=== PATIENT | female | born 2000 | race Caucasian/White ===

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

== ENCOUNTER 2020-02-26 22:27 | Emergency (ER) | payer MEDICAID ==
[~2020-02-26] VITALS: Ht 162.6 cm; Wt 59.0 kg
[2020-02-26 22:35] VITALS: BP 110/76
[2020-02-27 00:26] LABS: BASOPHILS % 0.8 % (0.0-2.0); EOSINOPHILS % 1.9 % (0.0-5.0); HEMATOCRIT. 37.7 % (36.0-48.0); HEMOGLOBIN. 12.9 g/dL (12.0-16.0); LYMPHOCYTES % 23.2 % (20.0-50.0); MEAN CORPUSCULAR HEMOGLOBIN 31.1 pg (28.0-32.0); MEAN CORPUSCULAR VOLUME 90.9 fL (81.0-99.0); MEAN PLATELET VOLUME 8.4 fl (7.4-10.4); MONOCYTES % 6.8 % (2.0-8.0); NEUTROPHILS % 67.3 % (40.0-76.0); PLATELET 309 x1000/uL (130-400); RED BLOOD CELL COUNT 4.15 mill/uL (4.2-5.4); RED CELL DISTRIBUTION WIDTH 13.1 % (11.6-14.6)
[2020-02-27 00:30] LABS: CHLORIDE 106 mEq/L (98-107)
== END 2020-02-27 02:24 | disposition home or self-care (01) ==
LOC: ER 22:27
DX: F41.9 Anxiety disorder, unspecified (principal); R06.02 Shortness of breath
CPT/HCPCS: 36415; 71045; 80053; 85025; 93005; 99285

== ENCOUNTER 2020-05-30 23:35 | Emergency (ER) | payer MEDICAID, MEDICARE, OTHER ==
[~2020-05-30] VITALS: Ht 165.1 cm; Wt 61.0 kg
[2020-05-31] MEDS ORDERED: PREDNISONE 20MG TABLET PO ONE (00:45)
[2020-05-31] MEDS ORDERED: DIPHENHYDRAMINE 50MG/ML VIAL IM ONE (00:45)
[2020-05-31 01:29] LABS: BASOPHILS % 0.1 % (0.0-2.0); CHLORIDE 106 mEq/L (98-107); EOSINOPHILS % 0.6 % (0.0-5.0); HEMOGLOBIN. 13.5 g/dL (12.0-16.0); LYMPHOCYTES % 18.1 % (20.0-50.0); MEAN CORPUSCULAR HEMOGLOBIN 31.1 pg (28.0-32.0); MEAN CORPUSCULAR VOLUME 89.9 fL (81.0-99.0); MEAN PLATELET VOLUME 8.2 fl (7.4-10.4); MONOCYTES % 4.2 % (2.0-8.0); PLATELET 297 x1000/uL (130-400); RED BLOOD CELL COUNT 4.34 mill/uL (4.2-5.4)
[2020-05-31 01:37] LABS: CLARITY URINE CLEAR (CLEAR); COLOR URINE YELLOW (YELLOW); KETONES URINE NEGATIVE (NEGATIVE); LEUKOCYTE ESTERASE URINE 2+ (NEGATIVE); NITRITE URINE NEGATIVE (NEGATIVE); OCCULT BLOOD URINE 1+ (NEGATIVE); PROTEIN URINE NEGATIVE (NEGATIVE); SPECIFIC GRAVITY URINE 1.011 (1.005-1.030); UROBILINOGEN URINE 0.2 E.U./dL (0.2-1.0)
[2020-05-31 01:40] LABS: HCG SCREEN NEGATIVE
[2020-05-31 01:51] LABS: PROTHROMBIN TIME 10.4 sec (9.6-11.0)
[2020-05-31 03:00] VITALS: BP 99/69
[2020-05-31] MEDS ORDERED: KETOROLAC 30MG/ML VIAL IV ONE (03:15)
[2020-05-31] MEDS ORDERED: FAMOTIDINE 20MG TABLET PO ONE (04:15)
[2020-05-31] MEDS ORDERED: DIPHENHYDRAMINE 50MG/ML VIAL IV ONE (04:15)
== END 2020-05-31 05:25 | disposition home or self-care (01) ==
LOC: ER 23:52
DX: L50.0 Allergic urticaria (principal)
CPT/HCPCS: 36415; 74021; 80053; 81003; 81025; 83690; 84703; 85025; 85610; 93005; 96372; 96374; 96375; 99285; J1200; J1885; J7512

== ENCOUNTER 2020-06-03 02:22 | Emergency (ER) | payer MEDICAID, MEDICARE ==
[~2020-06-03] VITALS: Ht 165.1 cm; Wt 62.4 kg
[2020-06-03] MEDS ORDERED: CETIRIZINE 10MG TABLET PO STA (05:53)
[2020-06-03] MEDS ORDERED: TRIAMCINOLONE ACETONIDE 0.025% OINT 15GM TOP STA (05:54)
[2020-06-03 06:40] VITALS: BP 117/68
== END 2020-06-03 06:58 | disposition home or self-care (01) ==
LOC: ER 02:22
DX: L50.9 Urticaria, unspecified (principal); T78.49XA Other allergy, initial encounter; X58.XXXA Exposure to other specified factors, initial encounter
CPT/HCPCS: 99283

== ENCOUNTER 2021-11-02 16:07 | Emergency (ER) | payer MEDICARE ==
[~2021-11-02] VITALS: Ht 165.1 cm; Wt 62.0 kg
[2021-11-02 17:12] LABS: BASOPHILS % 0.5 % (0.0-2.0); EOSINOPHILS % 0.2 % (0.0-5.0); HEMATOCRIT. 37.2 % (36.0-48.0); HEMOGLOBIN. 12.6 g/dL (12.0-16.0); LYMPHOCYTES % 12.2 % (20.0-50.0); MEAN CORPUSCULAR HEMOGLOBIN 30.9 pg (28.0-32.0); MEAN CORPUSCULAR VOLUME 91.1 fL (81.0-99.0); MEAN PLATELET VOLUME 8.1 fl (7.4-10.4); MONOCYTES % 12.6 % (2.0-8.0); NEUTROPHILS % 74.5 % (40.0-76.0); PLATELET 244 x1000/uL (130-400); RED BLOOD CELL COUNT 4.08 mill/uL (4.2-5.4); RED CELL DISTRIBUTION WIDTH 13.5 % (11.6-14.6)
[2021-11-02 17:19] LABS: CHLORIDE 106 mEq/L (98-107)
[2021-11-02] MEDS ORDERED: ACETAMINOPHEN 325MG TABLET PO ONE (19:15)
[2021-11-02] MEDS ORDERED: IBUPROFEN 400MG TABLET PO ONE (19:15)
[2021-11-02 20:07] LABS: MONOTEST NEGATIVE (NEGATIVE)
[2021-11-02 20:17] LABS: CLARITY URINE CLEAR (CLEAR); COLOR URINE YELLOW (YELLOW); KETONES URINE NEGATIVE (NEGATIVE); LEUKOCYTE ESTERASE URINE 1+ (NEGATIVE); NITRITE URINE NEGATIVE (NEGATIVE); OCCULT BLOOD URINE 1+ (NEGATIVE); PROTEIN URINE NEGATIVE (NEGATIVE); SPECIFIC GRAVITY URINE 1.013 (1.005-1.030); UROBILINOGEN URINE 0.2 E.U./dL (0.2-1.0)
[2021-11-02] MEDS ORDERED: NITR-87 MT (20:54)
[2021-11-02] MEDS ORDERED: TOPUD PO (20:54)
[2021-11-02] MEDS ORDERED: IBUP-2028 MT (20:54)
[2021-11-02] MEDS ORDERED: NITROFURANTOIN 100MG M/M CAPSULE PO ONE (21:00)
[2021-11-02 21:09] VITALS: BP 137/69
== END 2021-11-02 21:10 | disposition home or self-care (01) ==
LOC: ER 16:07
DX: N39.0 Urinary tract infection, site not specified (principal); I49.9 Cardiac arrhythmia, unspecified; Z20.822 Contact with and (suspected) exposure to COVID-19
CPT/HCPCS: 36415; 71045; 80053; 81003; 81025; 85025; 86308; 87426; 87804; 93005; 99285

== ENCOUNTER 2023-05-08 22:47 | Emergency (ER) | payer SELFPAY ==
[~2023-05-08] VITALS: Ht 165.1 cm; Wt 59.0 kg
[~2023-05-08 22:47] MED LIST: IBUP-2028 MT; NITR-87 MT; TOPUD PO
[2023-05-08 22:52] VITALS: BP 101/78; O2SAT 99
[2023-05-08 23:16] LABS: BASOPHILS % 0.8 % (0.0-2.0); EOSINOPHILS % 1.4 % (0.0-5.0); HEMATOCRIT. 36.8 % (36.0-48.0); HEMOGLOBIN. 12.6 g/dL (12.0-16.0); LYMPHOCYTES % 31.7 % (20.0-50.0); MEAN CORPUSCULAR HEMOGLOBIN 30.7 pg (28.0-32.0); MEAN CORPUSCULAR HGB CONC 34.2 g/dL (31.0-37.0); MEAN CORPUSCULAR VOLUME 89.7 fL (81.0-99.0); MEAN PLATELET VOLUME 7.8 fl (7.4-10.4); MONOCYTES % 5.9 % (2.0-8.0); NEUTROPHILS % 60.2 % (40.0-76.0); PLATELET 299 x1000/uL (130-400); RED CELL DISTRIBUTION WIDTH 13.4 % (11.6-14.6); WHITE BLOOD COUNT 7.6 x1000/uL (4.5-11.0)
[2023-05-08 23:24] LABS: CHLORIDE 106 mEq/L (98-107); INDEX HEMOLYSI 1 (1-3); INDEX ICTERIC 1 (1-4); INDEX LIPEMIC 1 (1-3); POTASSIUM 4.4 mEq/L (3.5-5.1); SODIUM 137 mEq/L (136-145)
[2023-05-08 23:26] LABS: CALCIUM 9.3 mg/dL (8.5-10.1)
[2023-05-08 23:34] LABS: ALANINE AMINOTRANSFERASE 16 IU/L (13-61); ALBUMIN 4.2 g/dL (3.4-5.0); ASPARTATE AMINOTRANSFERASE 16 IU/L (15-37); BILIRUBIN TOTAL 0.4 mg/dL (0.1-1.0); CARBON DIOXIDE 28 mEq/L (21-32); CREATININE 0.7 mg/dL (0.6-1.3); GLUCOSE 95 mg/dL (70-105); PROTEIN TOTAL 8.3 g/dL (6.0-8.3); UREA NITROGEN BLOOD 12 mg/dL (7-21)
[2023-05-08 23:39] LABS: TROPONIN I HIGH SENSITIVITY < 4 ng/L (<54)
[2023-05-09] LABS: CLARITY URINE CLEAR (CLEAR); COLOR URINE YELLOW (YELLOW); GLUCOSE URINE NEGATIVE (NEGATIVE); KETONES URINE NEGATIVE (NEGATIVE); LEUKOCYTE ESTERASE URINE NEGATIVE (NEGATIVE); NITRITE URINE NEGATIVE (NEGATIVE); OCCULT BLOOD URINE 2+ (NEGATIVE); PH URINE 6.5 (4.5-8.0); PROTEIN URINE NEGATIVE (NEGATIVE); SPECIFIC GRAVITY URINE 1.019 (1.005-1.030); UROBILINOGEN URINE 0.2 E.U./dL (0.2-1.0)
[2023-05-09 00:02] LABS: PROTHROMBIN TIME 10.3 sec (9.6-11.0)
[2023-05-09 00:04] LABS: BACTERIA URINE NONE SEEN; WBC URINE 0-2 /hpf (0-2); YEAST URINE NONE SEEN
[2023-05-09 01:24] VITALS: PULSE 76; RESP 14; TEMP 98.2
[2023-05-09 05:47] LABS: SQUAMOUS EPITHELIAL CELL URINE FEW /lpf (RARE/1+)
== END 2023-05-12 01:24 | disposition home or self-care (01) ==
LOC: ER 05-09 05:19
DX: J06.9 Acute upper respiratory infection, unspecified (principal); Z20.822 Contact with and (suspected) exposure to COVID-19
CPT/HCPCS: 71045; 87426; 80053; 81003; 85025; 85610; 84484; 36415; 93005; 99285; 81025; C9803

== ENCOUNTER 2023-08-23 03:34 | Emergency (ER) | payer SELFPAY ==
[~2023-08-23] VITALS: Ht 165.1 cm; Wt 63.0 kg
[2023-08-23 03:48] VITALS: O2SAT 99
[2023-08-23] MEDS ORDERED: DEXAMETHASONE 4MG TABLET PO ONE (08:00)
[2023-08-23 08:05] VITALS: BP 122/68; PULSE 88; RESP 18; TEMP 98.7
[2023-08-23] MEDS ORDERED: GUAI10LI14 PO (08:05)
== END 2023-08-23 08:16 | disposition home or self-care (01) ==
LOC: ER 03:48
DX: J06.9 Acute upper respiratory infection, unspecified (principal)
CPT/HCPCS: 99283; J8540